=== PATIENT | male | born 1945 | race Caucasian/White ===

== ENCOUNTER → 2017-02-08 | Outpatient (REF) | payer MEDICARE, OTHER ==
[~2017-02-08] MED LIST: /PANT40TA OR; /WARF5TA PO; ASPI81TA83 PO; ASPI81TA85 PO; ATEN25TA OR; CENTRUM SILVER PO; CIAL5TAB PO; CLEO150C PO; COUM1TAB17 PO; COUM2TAB22 PO; COUMADIN PO; DIGO0.12 PO; FERR325T OR; FIBEPOW PO; FISH1000 PO; FLAXOIL PO; GARL10004 PO; LANO0.1211 OR; METOPROLOL PO; TESTPOW5 PO; VERAPAMIL PO; [UNRECOGNIZED DRUG - CODE] PO
[2017-02-08 19:26] LABS: INR 1.75
== END ==
LOC: M LAB REF 16:10
PROVIDERS: ATTEND Internal Medicine
DX: Z51.81 Encounter for therapeutic drug level monitoring (principal); Z79.02 Long term (current) use of antithrombotics/antiplatelets

== ENCOUNTER → 2017-02-23 | Outpatient (REF) | payer MEDICARE, OTHER | LOC: M LAB REF 16:24 | PROVIDERS: ATTEND Physician Assistant | DX: R30.0 Dysuria (principal) ==

== ENCOUNTER → 2017-02-24 | Outpatient (REF) | payer MEDICARE, OTHER ==
[2017-02-24 20:21] LABS: INR 1.99
== END ==
LOC: M LAB REF 09:50
PROVIDERS: ATTEND Internal Medicine
DX: Z51.81 Encounter for therapeutic drug level monitoring (principal); Z79.02 Long term (current) use of antithrombotics/antiplatelets

== ENCOUNTER → 2018-01-12 | Outpatient (REF) | payer MEDICARE, OTHER ==
[2018-01-12 17:36] LABS: INR 2.22
== END ==
LOC: M LABDRWCV 16:22
DX: Z51.81 Encounter for therapeutic drug level monitoring (principal); Z79.02 Long term (current) use of antithrombotics/antiplatelets
CPT/HCPCS: 85610

== ENCOUNTER 2024-02-15 13:28 | Emergency (ER) | payer MEDICARE, OTHER ==
[~2024-02-15] VITALS: Ht 182.9 cm; Wt 96.8 kg
[~2024-02-15 13:28] MED LIST changes: -/PANT40TA OR; -/WARF5TA PO; -ASPI81TA85 PO; +ASPI81TA86 PO; +PROT1TAB2 OR
[2024-02-15 13:29] VITALS: BP 172/81; TEMP 96.9; O2SAT 95
[2024-02-15] MEDS ORDERED: DILT180C95 (13:42)
[2024-02-15] MEDS ORDERED: CLOP75TA2 (13:42)
[2024-02-15] MEDS ORDERED: ATOR40TA75 (13:42)
[2024-02-15] MEDS ORDERED: DIGO0.123 (13:42)
== END 2024-02-15 14:24 | disposition left against medical advice (07) ==
LOC: M ED 13:28
DX: Z53.21 Procedure and treatment not carried out due to patient leaving prior to being seen by health care provider (principal)

== ENCOUNTER 2024-02-16 10:17 | Emergency (ER) | payer MEDICARE ==
[~2024-02-16] VITALS: Ht 182.9 cm; Wt 91.8 kg
[~2024-02-16 10:17] MED LIST changes: +ATOR40TA75; +CLOP75TA2; +DIGO0.123; +DILT180C95
[2024-02-16] MEDS: NS 500 ML IV ONE ×2 (10:48→11:39)
[2024-02-16 10:50] LABS: BASO % 0.3 % (0.0-1.0); EOS # 0.1 10^3/uL (0.0-0.5); EOS % 1.2 % (0.0-3.0); HEMATOCRIT 52.7 % (42.0-52.0); HEMOGLOBIN 17.6 g/dl (13.5-17.5); LYMPH % 22.5 % (24.0-44.0); MEAN CORPUSCULAR HEMOGLOBIN 30.8 pg (27.0-33.0); MEAN CORPUSCULAR HGB CONC 33.4 g/dl (32.0-36.5); MEAN CORPUSCULAR VOLUME 92.3 fl (80.0-96.0); MONO # 0.7 10^3/uL (0.0-0.8); MONO % 8.1 % (2.0-8.0); NEUTROPHILS % 67.6 % (36.0-66.0); PLATELET COUNT, AUTOMATED 212 10^3/uL (150-450); RED BLOOD COUNT 5.71 10^6/uL (4.30-6.10)
[2024-02-16 11:05] LABS: INR 1.1; PROTHROMBIN TIME 13.9 SECONDS (12.5-14.5)
[2024-02-16 11:15] LABS: ALBUMIN 4.1 G/DL (3.2-5.2); BILIRUBIN,DIRECT 0.5 MG/DL (<0.4); BILIRUBIN,TOTAL 1.1 MG/DL (0.3-1.2); CALCIUM LEVEL 9.8 MG/DL (8.3-10.6); CREATININE FOR GFR 1.33 MG/DL (0.70-1.30); GLOMERULAR FILTRATION RATE 55.1 (>35); MAGNESIUM LEVEL 2.1 MG/DL (1.8-2.4); POTASSIUM SERUM 4.3 MMOL/L (3.5-5.1); TOTAL PROTEIN 7.2 G/DL (5.7-8.2)
[2024-02-16 11:17] LABS: THYROID STIMULATING HORMONE 0.686 uIU/ML (0.55-4.78)
[2024-02-16 14:15] VITALS: BP 144/86; TEMP 97.5; O2SAT 95
== END 2024-02-16 14:27 | disposition home or self-care (01) ==
LOC: M ED 10:17 → EDBD 10:17 → M ED 14:27
DX: E86.0 Dehydration (principal); I48.91 Unspecified atrial fibrillation; I10 Essential (primary) hypertension; G47.33 Obstructive sleep apnea (adult) (pediatric); G62.9 Polyneuropathy, unspecified